=== PATIENT | female | born 1960 | race Caucasian/White ===

== ENCOUNTER → 2018-05-17 | Outpatient (CLI) | payer BC ==
[2018-05-17 09:06] LABS: PLATELET COUNT, AUTOMATED 191 K/uL (150-450)
--- NOTE | 2018-05-17 09:18 | EKG ---
FACILITY: [facility] PATIENT NAME: ELANA ARGUETA : [id number] MR: [id number] V: [id number] EXAM DATE: ORDERING PHYSICIAN: JAE EARL TECHNOLOGIST: LISA Shane Reason : PREOP-KNEE Blood Pressure : / mmHG Vent. Rate : 055 BPM Atrial Rate : 055 BPM P-R Int : 182 ms QRS Dur : 088 ms QT Int : 434 ms P-R-T Axes : 071 072 058 degrees QTc Int : 415 ms Sinus bradycardia Nonspecific ST findings inferolateral leads No previous ECGs available Confirmed by KRUNAL RIVERO ([id number]) on 05/17/2018 3:55:24 PM Referred By: Confirmed By:KRUNAL RIVERO
== END ==
LOC: LAB 08:25
PROVIDERS: ATTEND Orthopaedic Surgery
DX: Z01.812 Encounter for preprocedural laboratory examination (principal); Z01.810 Encounter for preprocedural cardiovascular examination; M17.11 Unilateral primary osteoarthritis, right knee; E03.9 Hypothyroidism, unspecified
CPT/HCPCS: 36415; 81001; 82040; 82247; 82310; 82374; 82435; 82565; 82947; 84075; 84132; 84155; 84295; 84443; 84450; 84460; 84520; 85025; 93005

== ENCOUNTER 2018-06-28 01:23 | Inpatient (IN) | payer BC ==
--- NOTE | 2018-06-27 12:28 | LEVENE H&P ---
DATE OF ADMISSION: June 28, 2018 IDENTIFICATION/CHIEF COMPLAINT The patient is a 57-year-old woman with a chief complaint of right knee pain. HISTORY OF PRESENT ILLNESS The patient has a long standing history of knee arthritis, progressively painful and debilitating, refractory to conservative care. Surgery is indicated to relieve symptoms after failure of nonoperative measures. PAST MEDICAL HISTORY Hypothyroidism. PAST SURGICAL HISTORY Multiple knee scopes and a remote history an open meniscectomy. ALLERGIES She has no known drug allergies. CURRENT MEDICATIONS A thyroid supplement once a day. FAMILY HISTORY Non-contributory. SOCIAL HISTORY Negative for tobacco use, she drinks alcohol about 2 times a month on a social basis, denies abuse. REVIEW OF SYSTEMS Noncontributory. PHYSICAL EXAMINATION GENERAL: This is a healthy female. HEENT: Normocephalic, atraumatic. NECK: Supple. LUNGS: Clear to auscultation bilaterally. HEART: Regular rate and rhythm. ABDOMEN: Soft. ORTHOPEDIC EXAMINATION The right knee has varus deformity, effusion is present, stiff at end range, gross stability is good. Calf is nontender. Neurovascular function is intact. ASSESSMENT Right knee end stage degenerative joint disease progressively painful and debilitating, refractory to conservative care. PLAN Per patient request, we are going to proceed with total knee arthroplasty. The nature of the procedure, the risks, benefits, and nonoperative alternative were reviewed. Risks include but are not limited to , major medical or anesthetic complication, infection, neurovascular injury, blood transfusion, stiffness, scarring, fracture, tendon rupture, instability, implant loosening, migration or failure, persistent or recurrent pain or symptoms, need for additional surgery and other unforeseen. She understands and wishes to proceed. A signed permit is placed in the chart. No guarantees are given or implied. 4 MTDD
[2018-06-27 14:54] LABS: INR 1.03
[2018-06-28] VITALS (23 sets, daily range): BP systolic 94–143; BP diastolic 51–94
[~2018-06-28] VITALS: Ht 170.2 cm; Wt 71.7 kg
[~2018-06-28 01:23] MED LIST: LEVO137T22 PO
[2018-06-28] MEDS ORDERED: fentaNYL CITR 100 MCG/2 ML AMP ONE (07:55)
[2018-06-28] MEDS ORDERED: DEXAMETHASONE SOD PHOS 10MG/ML ONE (08:08)
[2018-06-28] MEDS ORDERED: LIDOCAINE MPF 1% 5 ML VIAL ONE (08:08)
[2018-06-28] MEDS ORDERED: PROPOFOL EMUL(*) 10MG/ML 20 ML 20 ML ONE (08:08)
[2018-06-28] MEDS ORDERED: ONDANSETRON 4 MG/2 ML VIAL ONE (08:08)
[2018-06-28] MEDS ORDERED: NORMOSOL R SOLN(*) 1000 ML BAG 1,000 ML IV PRN ×2 (09:00→12:55)
[2018-06-28] MEDS ORDERED: ROPIVACAINE/EPI/CLONIDINE/KET 50 ML SYRINGE INJ ONE (09:00)
[2018-06-28] MEDS ORDERED: CELECOXIB 200 MG CAP PO ONE (09:00)
[2018-06-28] MEDS ORDERED: MIDAZOLAM 2 MG/2 ML VIAL IVP PRN (09:00)
[2018-06-28] MEDS ORDERED: TRANEXAMIC AC 1000 MG/10ML SDV 1,000 MG in DEXTROSE 5% 50 ML BAG 50 ML IV ONE (09:00)
[2018-06-28] MEDS ORDERED: FAMOTIDINE 20 MG TAB PO ONE (09:00)
[2018-06-28] MEDS ORDERED: ACETAMINOPHEN 500 MG TAB PO ONE (09:00)
[2018-06-28] MEDS ORDERED: LIDOCAINE/SOD BICARB 8.4% SYR ID ONE (09:00)
[2018-06-28] MEDS ORDERED: PREGABALIN 150 MG CAPSULE PO ONE (09:00)
[2018-06-28] MEDS ORDERED: ceFAZolin(*) 1 GM VIAL 1 GM in NS(*) 0.9% 100 ML ADDVANT BAG 100 ML IVPB ONE (09:00)
[2018-06-28] MEDS ORDERED: KETAMINE HCL 200 MG/20 ML MDV ONE (10:13)
[2018-06-28] MEDS ORDERED: VANCOMYCIN 1 GM VIAL ONE (10:15)
[2018-06-28] MEDS ORDERED: HALOPERIDOL LACT 5 MG/ML VIAL IM ONE (10:32)
[2018-06-28] MEDS ORDERED: FLUSH 10 ML SYR IVP PRN (12:55)
[2018-06-28] MEDS ORDERED: PROMETHAZINE 25 MG/ML 1 ML AMP IVP PRN (12:55)
[2018-06-28] MEDS ORDERED: BENZOCAINE/MENTHOL 1 EACH LOZG PO PRN (12:55)
[2018-06-28] MEDS ORDERED: BISACODYL 10 MG SUPP PR PRN (12:55)
[2018-06-28] MEDS ORDERED: ACETAMINOPHEN 325 MG TAB PO PRN (12:55)
[2018-06-28] MEDS ORDERED: diphenhydrAMINE 50 MG/ML VIAL IVP PRN (12:55)
[2018-06-28] MEDS ORDERED: MAGNESIUM HYDROXIDE* 30ML UDCP PO PRN (12:55)
[2018-06-28] MEDS ORDERED: diphenhydrAMINE 25 MG CAP PO PRN (12:55)
[2018-06-28] MEDS ORDERED: ZOLPIDEM TARTRATE 5 MG TAB PO PRN (12:55)
--- NOTE | 2018-06-28 14:59 | RADIOLOGY IMAGING REPORT ---
FACILITY: [facility] [place] PATIENT NAME: Praveena Hicks : 1960 MR: [id number] V: [id number] EXAM DATE: ORDERING PHYSICIAN: JAE EARL TECHNOLOGIST: Location: [facility] [place] Patient: Praveena Hicks : 1960 Visit/Account:[id number] Date of Sevice: 06/28/2018 Exam type: KNEE LIMITED RIGHT History: POST OP PLACEMENT Comparison: None. Findings: Two views of the right knee demonstrate a right knee arthroplasty in good anatomic alignment. Soft t issue gas and skin micky project over the anterior aspect this postoperative knee IMPRESSION: 1. As above Report Dictated By: Caitie Berkowitz MD at 06/28/2018 2:29 PM Report E-Signed By: Caitie Berkowitz MD at 06/28/2018 2:55 PM WSN:[id number]
--- NOTE | 2018-06-28 15:20 | Hospitalist Consultation ---
History of Present Illness Requesting Physician Dr. Katz Reason for Consult Medical Management Chief Complaint s/p right total knee replacement History of Present Illness She was admitted s/p right total knee replacement. It is reported the surgery went well and without complication. History Problems: (1) Hypothyroidism Status: Chronic Home Meds Reported Medications Levothyroxine Sodium (SYNTHROID) 137 Mcg Tablet, 137 MCG PO QDAY 06/21/18 Allergies: Coded Allergies: No Known Drug Allergies (Unverified , 06/21/18) Hx Smoking: No Caffeine Intake: Coffee Caffeine/Cups Per Day: SOME Hx Alcohol Use: Yes Hx Substance Use Disorder: No Social Drug Use: Never History of IV Drug Use: No Review of Systems All Systems Reviewed/Normal: Yes, Except as Noted Gastrointestinal: Nausea Exam Vital Signs Vital Signs Date Time Temp Pulse Resp B/P (MAP) Pulse Ox O2 Delivery O2 Flow Rate FiO2 06/28/18 13:45 59 12 98 06/28/18 08:12 98.1 125/72 (89) Room Air General Appearance: Alert, Awake, No Acute Distress, Afebrile Neuro: No Gross deficits Cardiovascular: Regular Rate and Rhythm Respiratory: No Respiratory Distress, Clear to Auscultation Psych: Alert & Oriented X3, Appropriate Mood & Affect Assessment and Plan Problems: (1) Status post total right knee replacement Status: Acute Assessment & Plan: She will be placed on Aspirin 325mg daily for DVT prophylaxis. She has no history of DVT or PE. (2) Hypothyroidism Status: Chronic Assessment & Plan: She is on chronic treatment with Levothyroxine. Continue. (3) Elevated liver enzymes Assessment & Plan: She had elevated liver enzymes on pre-op labs from May. She will get CMP in the morning. Venous Thromboembolism Antithrombotics Is Pt On Any Antithrombotics?: No KAVITHA DOTSONP Jun 28, 2018 15:20
[2018-06-28] MEDS: APAP/HYDROCODONE 325/7.5 TAB PO PRN ×3 (15:50→21:27)
[2018-06-28] MEDS: CELECOXIB 200 MG CAP PO SCH (16:15)
[2018-06-28] MEDS: ceFAZolin(*) 1 GM VIAL 1 GM in NS(*) 0.9% 100 ML ADDVANT BAG 100 ML IVPB SCH (18:50)
--- NOTE | 2018-06-28 19:55 | OPERATIVE REPORT 1 ---
EVENT DATE: June 28, 2018 SURGEON: Delfino Katz MD ANESTHESIOLOGIST: Kody Owens MD ANESTHESIA: General plus spinal. LANDSCAPE ARCHITECT AND PLANNER: FRAN Rudolph PREOPERATIVE DIAGNOSIS Right knee degenerative joint disease. POSTOPERATIVE DIAGNOSIS Right knee degenerative joint disease. PROCEDURE PERFORMED Right total knee arthroplasty. ESTIMATED BLOOD LOSS Minimal. DRAINS None. SPECIMENS None. COMPLICATIONS None apparent. TOURNIQUET TIME 48 minutes IMPLANTS USED Thanx Triathlon knee system with a 4 PS femur, 4 standard tibial baseplate, 31 mm universal cemented all-polyethylene patellar button, 13 mm PS tibial tray liner. Polyethylene is X3. INDICATIONS Cindy is a 57-year-old woman who is status post remote open medial meniscectomy. She has end-stage arthritis that is progressively painful and debilitating, refractory to conservative care. Surgery is indicated to relieve symptoms after failure of nonoperative measures. DESCRIPTION OF PROCEDURE Patient is taken to the operating room and placed supine on the operating table. Spinal block is administered by the anesthesiologist. General anesthesia is induced. Antibiotics are administered IV. Right lower extremity is prepped and draped in the usual sterile fashion for knee arthroplasty. Limb is exsanguinated with an Esmarch bandage. Tourniquet inflated to 250 mmHg. A midline longitudinal incision is made, carried down through the skin and subcutaneous tissue to the extensor mechanism. Full-thickness flaps are developed far enough medially to allow medial parapatellar arthrotomy be performed. Patella is everted. Knee is brought into flexed position. Fat pad, anterior horns of the menisci, and the cruciate ligaments are debrided. A subperiosteal medial release is started in a titrated fashion to start to balance the knee. A step drill is used to enter the distal femur. A 10-inch long alignment guide is used to engage the isthmus, cut set for 6 degrees of valgus relative to the anatomic axis. The 10 mm resection block is applied, pinned, and cuts made with an oscillating saw. AP sizing guide is applied to the distal femoral cut, positioned for 3 degrees of external rotation relative to the posterior condyles. Size 4 is optimal without risk of notching. Four-in-one cutting block is applied. Anterior, posterior, posterior chamfer, and anterior chamfer cuts are made respectively. PS block is applied and centered. Medial and lateral bone is removed through the box. Trial femur has nice [id number] fit. Attention is turned to tibial preparation. Extramedullary guide is applied, positioned for varus, valgus, posterior slope, and rotation. This is set to resect 9 mm from the relatively intact lateral tibial plateau. It is dropped down another millimeter or two to ensure an adequate cut. Block is pinned. Extramedullary alignment check is made. Cuts made with an oscillating saw. Additional osteophytes are removed along with some posterior condylar bone. The gaps are subsequently balanced and symmetric with no additional releases required. The 4 tibial baseplate provides optimum bony coverage without soft tissue overhang. This is inserted along with a trial liner and a trial femur. Knee is brought to extension. Patella is taken from the starting thickness of 22 to a residual of 14 with a patellar clamp and oscillating saw. The 31 provides optimum bony coverage without soft tissue overhang. Lug holes are drilled. Patella tracks nicely with the no-touch technique. Final tibial preparation consists of assuring appropriate rotational and translational positioning of the component. The boss is reamed. Fin is punched. Sclerotic surfaces perforated with a small drill bit to facilitate cement interdigitation. A mix of methacrylate is made, and components cemented in a single stage. Once the cement is fully polymerized, tourniquet is deflated. Meticulous hemostasis is assured. Wound is copiously lavaged to remove all loose debris. The 13 PS tibial tray liner fills up the gap ideally, allowing the knee to drop to full extension without excess hyperextension and providing optimal soft tissue tension and stability. Tray is lavaged and dried, and the actual liner is locked into the baseplate. The arthrotomy is closed in flexion with #2 Ethibond, subcutaneous tissue with 3-0 Vicryl, skin with surgical micky. Xeroform 4 x 4's applied as a dry, sterile dressing and a compression wrap. The patient was awakened from anesthesia and taken to the recovery room in stable condition having tolerated the procedure well. PLAN Plan is for standard TKA rehab protocol. [facility]
[2018-06-29] MEDS: APAP/HYDROCODONE 325/7.5 TAB PO PRN ×4 (01:30→18:58)
[2018-06-29] MEDS: ceFAZolin(*) 1 GM VIAL 1 GM in NS(*) 0.9% 100 ML ADDVANT BAG 100 ML IVPB SCH ×2 (03:25→11:16)
[2018-06-29] MEDS: LEVOTHYROXINE SOD 0.137 MG TAB PO SCH (05:39)
[2018-06-29 07:09] VITALS: BP 98/56
[2018-06-29] MEDS: ASPIRIN 325 MG TAB PO SCH (08:41)
[2018-06-29] MEDS: CELECOXIB 200 MG CAP PO SCH ×2 (08:41→17:21)
[2018-06-29 09:28] VITALS: Ht 170.2 cm; Wt 71.7 kg
--- NOTE | 2018-06-29 10:11 | Hospitalist Progress Note ---
Subjective Progress Notes Subjective She has no complaints this morning. She has no acute events overnight. Patient Complains of: Cardiovascular: No: Chest Pain Respiratory: No: Shortness of Breath Physical Exam Vital Signs Date Time Temp Pulse Resp B/P (MAP) Pulse Ox O2 Delivery O2 Flow Rate FiO2 06/29/18 07:09 98.7 64 16 98/56 (70) 95 Room Air Intake and Output 06/29/18 07:00 Intake Total 4500 ml Balance 4500 ml Intake Oral 600 ml IV Total 1950 ml Other 1950 ml # Voids 2 General Appearance: Alert, Awake, No Acute Distress, Afebrile Neuro: No Gross deficits Cardiovascular: Regular Rate and Rhythm Respiratory: No Respiratory Distress, Clear to Auscultation Psych: Alert & Oriented X3, Appropriate Mood & Affect Result Diagram: 06/29/18 0529 Assessment and Plan Problems: (1) Status post total right knee replacement Status: Acute Assessment & Plan: She will be placed on Aspirin 325mg daily for DVT prophylaxis. She has no history of DVT or PE. (2) Hypothyroidism Status: Chronic Assessment & Plan: She is on chronic treatment with Levothyroxine. Continue. (3) Elevated liver enzymes Assessment & Plan: She had elevated liver enzymes on pre-op labs from May. Liver enzymes normal this morning. She has been following with Dr. Kirby regarding labs. Labs have normalized per patient since that draw. Exam Sepsis Risk: No Definite Risk KAVITHA DOTSON [employer] Jun 29, 2018 10:11
[2018-06-29 11:14] VITALS: BP 93/60
[2018-06-29 15:42] VITALS: BP 108/67
[2018-06-29 19:32] VITALS: BP 88/49
[2018-06-29] MEDS: DIAZEPAM 5 MG TAB PO PRN (20:29)
[2018-06-29 20:30] VITALS: BP 104/62
[2018-06-29 22:56] VITALS: BP 100/59
[2018-06-30] MEDS: APAP/HYDROCODONE 325/7.5 TAB PO PRN ×4 (01:46→13:01)
[2018-06-30 02:02] VITALS: BP 122/69
[2018-06-30 03:29] VITALS: BP 126/75
[2018-06-30] MEDS: DIAZEPAM 5 MG TAB PO PRN (03:39)
[2018-06-30] MEDS: LEVOTHYROXINE SOD 0.137 MG TAB PO SCH (06:04)
[2018-06-30 08:00] VITALS: BP 114/63
[2018-06-30] MEDS: ASPIRIN 325 MG TAB PO SCH (08:42)
[2018-06-30] MEDS: CELECOXIB 200 MG CAP PO SCH (08:42)
[2018-06-30] MEDS ORDERED: HYDR-385 PO (08:55)
[2018-06-30] MEDS ORDERED: DIA5 PO (08:56)
[2018-06-30] MEDS ORDERED: CELE-1 PO (08:58)
[2018-06-30] MEDS ORDERED: ASPI-757 PO (09:08)
--- NOTE | 2018-06-30 10:18 | Hospitalist Progress Note ---
Subjective Progress Notes Subjective She has no complaints this morning. She had no acute events overnight. She would like to go home today. Patient Complains of: Cardiovascular: No: Chest Pain Respiratory: No: Shortness of Breath Physical Exam Vital Signs Date Time Temp Pulse Resp B/P (MAP) Pulse Ox O2 Delivery O2 Flow Rate FiO2 06/30/18 08:00 99.3 70 16 114/63 (80) 94 Room Air Intake and Output 06/30/18 00:00 Intake Total 983 ml Balance 983 ml Intake Oral 870 ml IV Total 113 ml General Appearance: Alert, Awake, No Acute Distress, Afebrile Neuro: No Gross deficits Cardiovascular: Regular Rate and Rhythm Respiratory: No Respiratory Distress, Clear to Auscultation Psych: Alert & Oriented X3, Appropriate Mood & Affect Result Diagram: 06/29/18 0529 Assessment and Plan Problems: (1) Status post total right knee replacement Status: Acute Assessment & Plan: She will be placed on Aspirin 325mg daily for DVT prophylaxis. She has no history of DVT or PE. (2) Hypothyroidism Status: Chronic Assessment & Plan: She is on chronic treatment with Levothyroxine. Continue. (3) Elevated liver enzymes Status: Resolved Assessment & Plan: She had elevated liver enzymes on pre-op labs from May. Liver enzymes normal 06/29. She has been following with Dr. Kirby regarding labs. Labs have normalized per patient since that draw. Exam Sepsis Risk: No Definite Risk KAVITHA DOTSON [employer]AM LEADER Jun 30, 2018 10:18
[2018-06-30 11:42] VITALS: BP 122/79
== END 2018-06-30 13:10 | disposition home or self-care (01) | DRG 470 ==
LOC: OR 01:23 → MED 13:45
PROVIDERS: ADMIT Orthopaedic Surgery; ATTEND Orthopaedic Surgery
PROC: 0SRC0J9 Replacement of Right Knee Joint with Synthetic Substitute, Cemented, Open Approach (ICD-10-PCS; principal; 2018-06-28 10:47)
DX: M17.11 Unilateral primary osteoarthritis, right knee (principal); E03.9 Hypothyroidism, unspecified
CPT/HCPCS: 36415; 82040; 82247; 82310; 82374; 82435; 82565; 82947; 84075; 84132; 84155; 84295; 84450; 84460; 84520; 85610; 86850; 86900; 86901; 97161; C1713; C1776; J0690; J1100; J1630; J2001; J2250; J2405; J2550; J2704; J3010; J3370; J3490; J7050; J7060